=== PATIENT | female | born 1970 | race Hispanic/Latino ===

== ENCOUNTER 2016-10-12 10:17 | Emergency (ER) | payer OTHER ==
[~2016-10-12] VITALS: Ht 157.5 cm; Wt 81.8 kg
[~2016-10-12 10:17] MED LIST: AMLO5TAB2 PO; CEPH-511 PO; FLUT16SP2 NS; GLBR5T PO; IBUP800T28 PO; KETO5DRO60 AFF EYE; LOPE2TAB32 PO; LORA-610 PO; METF1000 PO; METO10TA3 PO; NAPR-837 PO; NAPR500T PO; OMEP20CA11 PO; OMEP20TA86 PO; ONDA8TAB10 PO; OXYC-284 PO; RANI300C PO; TRAM50TA2 PO; ZOF8 SL
[2016-10-12 10:33] VITALS: BP 145/101; PULSE 71; RESP 16; O2SAT 97
--- NOTE | 2016-10-12 11:39 | ED.REPORT ---
HPI-Back Pain 40 and Over Date of Service Oct 12, 2016 ED Provider: Jordy Geronimo PA-C Anny is a 46-year-old woman whose chief complaint is low back pain. Patient states she has chronic back pain has been worse than usual the last couple days , making it difficult for her to sleep. States ibuprofen is not helpful. Admits history of diabetes. Denies numbness, tingling, weakness or pain in lower extremity. Denies fever, HIV, organ transplant, immunosuppression, recent surgery, recent infection, history of back surgery, surgical implants and IV drug use. Denies bowel/bladder dysfunction and saddle anesthesia. Nursing Notes Stated Complaint: BACK PAIN Chief Complaint: Back Pain or Injury Nursing Notes Reviewed: Yes Allergies: Coded Allergies: hydrocodone (Verified Adverse Reaction, Severe, N&V, 10/12/16) lisinopril (Verified Adverse Reaction, Severe, COUGH, 10/12/16) losartan (Verified Adverse Reaction, Severe, HEADACHE, 10/12/16) ciprofloxacin (Verified Adverse Reaction, Intermediate, headaches, 10/12/16 ) Scheduled Amlodipine (Amlodipine) 5 Mg Tablet 5 MG PO DAILY Cephalexin (Keflex) 250 Mg Capsule 250 MG PO QID Glyburide (Glyburide) 5 Mg Tab 10 MG PO BID Ketotifen Fumarate (Ketotifen Fumarate) 5 Ml Drops 1 GTT AFF EYE BID Loratadine (Loratadine) 10 Mg Tab.rapdis 10 MG PO DAILY Metformin (Glucophage) 1,000 Mg Tablet 1,000 MG PO BIDWM Omeprazole (Omeprazole) 20 Mg Capsule.dr 20 MG PO BID Omeprazole (Omeprazole) 20 Mg Tablet.dr 20 MG PO BID Ranitidine (Ranitidine) 300 Mg Capsule 300 MG PO BID Scheduled PRN Cyclobenzaprine (Cyclobenzaprine) 5 Mg Tablet 5 MG PO TID PRN PRN Spasm Fluticasone Propionate (Flonase Nasal) 16 Gm [place].susp 2 SPRAYS NS BID PRN PRN For Congestion Ibuprofen (Ibuprofen) 800 Mg Tablet 800 MG PO QID PRN PRN For Pain Loperamide (Loperamide) 2 Mg Tablet 2 MG PO Q4H PRN PRN For Diarrhea or Loose Stool Take 1 tabs after each loose stool up to 6 tabs in 24 hours. Metoclopramide (Metoclopramide) 10 Mg Tablet 10 MG PO QID PRN PRN For Pain Naproxen (Naprosyn) 500 Mg Tablet 500 MG PO BID PRN PRN For Pain Naproxen Sodium (Midol) 220 Mg Tablet 220 MG PO Q6 PRN PRN For Pain Ondansetron (Zofran) 8 Mg Tab 8 MG SL Q8H PRN PRN PRN Ondansetron ODT (Ondansetron ODT) 8 Mg Tab.rapdis 8 MG PO QID PRN PRN For Nausea Oxycodone HCl/Acetaminophen 5-325 (Percocet 5-325) 1 Each Tablet 1-2 EACH PO Q4- 6H PRN PRN For Pain Tramadol (Tramadol) 50 Mg Tablet 50 MG PO Q8 PRN PRN For Pain General Time Seen by MD: 11:09 Chief Complaint Lumbar pain Sudden in Onset?: No Past Medical History Patient History: Patient reports no known family medical history. Past Medical History Type II diabetes ho Bladder infections Nephrolithiasis/Ureterolithiasis Reflux History of heart murmur History of sleep apnea Reports: Diabetes mellitus, GERD, Hyperlipidemia, Hypertension Past Surgical History Cholecystectomy Reports: , Cholecystectomy Reports: Tubal ligation Smoking History Never Smoker Social History Alcohol Use: Denies alcohol use Drug Use: Denies drug use Occupation lives with 3 kids 7, 8 and 13 Ambulatory Status Independent Review of Systems General: Denies fever, chills, malaise. HEENT: Denies congestion, headache, sore throat. Respiratory: Denies dyspnea, cough, shortness of breath, wheezing. Cardiovascular: Denies chest pain, palpitations. Gastrointestinal: Denies vomiting, diarrhea, abdominal pain. Genitourinary: Denies frequency, urgency, dysuria, hematuria. Otherwise as noted in HPI. Physical Exam General: Well appearing, well developed, well nourished, no acute distress. Head: Atraumatic, normocephalic. Eyes: No scleral icterus or injection. No discharge. Vision grossly intact. ENT: Voice clear, hearing grossly intact. Skin: Warm and dry. Neurological: Normal gait, toe walk, heel walk, Romberg. Hip flexion, knee extension, ankle dorsiflexion and plantarflexion strength 5/5 B/L. Patellar and Achilles reflexes present and equal B/L. Sensation to sharp touch intact at medial leg, dorsal foot and lateral foot B/L. negative seated straight leg raise , negative seated cross straight leg raise. Psychological: alert and oriented. Speech appropriate, linear and logical. Behavior appropriate. Initial Vital Signs Vital Signs (First) Date Time Temp Pulse Resp B/P Pulse Ox O2 Delivery O2 Flow Rate FiO2 10/12/16 10:33 36.3 71 16 145/101 97 Room Air Interpretation & Diagnostics Lab Results Interpretation Test 10/12/16 11:30 Hold Urine Received (Received) Urinalysis Interpretation Positive blood (patient states she is currently having menses), Positive glucose (1000) Re-Eval/Medical Decision Med Decision/Clinical Course 46-year-old patient with lower back pain. History, physical reassuring regarding cauda equina, epidural abscess. Neurological examination normal. Discharge patient with analgesia and instructions, Flexeril prescription, primary care follow-up instructions, return precautions Discharge & Departure Impression: Primary Impression: Low back pain Chronicity: acute Back pain laterality: left Sciatica presence: without sciatica Qualified Code: M54.5 - Low back pain Disposition: Home Discharge Condition All VS Reviewed: Yes Condition: Stable Patient Instructions: Acute Low Back Pain (ED) Additional Instructions: Evaluation in the emergency department for lower back pain. History and physical are reassuring for emergent neurological condition such as epidural abscess or cauda equina syndrome. History does not suggest that this is likely to be a spinal fracture. Your neurological examination is normal, indicating there is no damage to the nerves in your back. I see no indication to perform imaging tests at this time. Treatment is largely symptomatic. Rest is important, especially for the next couple of days, but avoid total bed rest. Reasonable activity as tolerated is the best. Apply ice to the affected area 4 times a day for 20 minutes over the next 24 hours. After that you will probably find warm compresses most helpful. The pain is best treated with 800 mg of ibuprofen (Advil, Motrin) every 6 hours , or 1000 mg of acetaminophen (Tylenol) every 6 hours. These drugs can be taken at the same time for more severe pain. I will write a prescription for cyclobenzaprine (Flexeril) which is a muscle relaxer which should help to get some better sleep. Please not drive or drink alcohol while taking cyclobenzaprine Most of all be patient: 70-90% of people with injuries presenting like yours will resolve within 7 weeks, even without treatment. Follow-up with your primary care provider in the next week or two to be sure your recovery is progressing as expected. Return the emergency department for new or worsening symptoms such as loss of bowel/bladder control, numbness between your legs, new weakness/numbness or high fever. The urinalysis shows no indication of a bladder or kidney infection, however there is significant amount of glucose in it. Please discuss strategies for control of your blood glucose level with your primary care provider. Referrals: Jerrod Lund MD (PCP) EDSupervising Provider for APC: John Trejo DO copies to: Jerrod Lund MD, Seth PA-C Oct 12, 2016 11:39
[2016-10-12] MEDS ORDERED: CYCL5TAB PO (11:48)
[2016-10-12 12:08] VITALS: BP 150/100; PULSE 71; RESP 18; O2SAT 100
== END 2016-10-12 12:15 | disposition home or self-care (01) ==
LOC: SED 10:17
DX: M54.5 Low back pain (principal); G89.29 Other chronic pain; E11.9 Type 2 diabetes mellitus without complications; K21.9 Gastro-esophageal reflux disease without esophagitis; E78.5 Hyperlipidemia, unspecified; I10 Essential (primary) hypertension; Z87.440 Personal history of urinary (tract) infections; Z79.84 Long term (current) use of oral hypoglycemic drugs; Z88.5 Allergy status to narcotic agent; Z88.8 Allergy status to other drugs, medicaments and biological substances; Z88.1 Allergy status to other antibiotic agents

== ENCOUNTER 2016-10-28 09:06 | Emergency (ER) | payer OTHER ==
[~2016-10-28] VITALS: Ht 157.5 cm; Wt 82.7 kg
[~2016-10-28 09:06] MED LIST changes: +CYCL5TAB PO
[2016-10-28 09:09] VITALS: BP 178/96; PULSE 82; RESP 16; O2SAT 97
--- NOTE | 2016-10-28 09:26 | ED.REPORT ---
HPI-Chest Pain 40 and Over Date of Service Oct 28, 2016 ED Provider: Shay Ordonez MD Patient is a 46-year-old female with a hx of HTN and DM who presents to the ED reporting right sided chest pain for the past nine hours. Pain began on the right side of her chest and radiates into the left chest, back and right arm. Patient c/o associated lightheadedness and describes the pain as a "light stabbing." She reports being seen multiple times for similar symptoms with one hospitalization. Patient has not been seen by a assembler final for this condition. These episodes have occurred twice a year for the past 2-3 years. She denies nausea, vomiting, sour taste in mouth, cough, and no hx of surgeries or blood clots. Nursing Notes Stated Complaint: CHEST PAIN,TROUBLE BREATHING Chief Complaint: Chest Pain Nursing Notes Reviewed: Yes Allergies: Coded Allergies: hydrocodone (Verified Adverse Reaction, Severe, N&V, 10/28/16) lisinopril (Verified Adverse Reaction, Severe, COUGH, 10/28/16) losartan (Verified Adverse Reaction, Severe, HEADACHE, 10/28/16) ciprofloxacin (Verified Adverse Reaction, Intermediate, headaches, 10/28/16 ) Scheduled Amlodipine (Amlodipine) 5 Mg Tablet 5 MG PO DAILY Cephalexin (Keflex) 250 Mg Capsule 250 MG PO QID Glyburide (Glyburide) 5 Mg Tab 10 MG PO BID Ketotifen Fumarate (Ketotifen Fumarate) 5 Ml Drops 1 GTT AFF EYE BID Loratadine (Loratadine) 10 Mg Tab.rapdis 10 MG PO DAILY Metformin (Glucophage) 1,000 Mg Tablet 1,000 MG PO BIDWM Omeprazole (Omeprazole) 20 Mg Capsule.dr 20 MG PO BID Omeprazole (Omeprazole) 20 Mg Tablet.dr 20 MG PO BID Ranitidine (Ranitidine) 300 Mg Capsule 300 MG PO BID Scheduled PRN Cyclobenzaprine (Cyclobenzaprine) 5 Mg Tablet 5 MG PO TID PRN PRN Spasm Fluticasone Propionate (Flonase Nasal) 16 Gm [place].susp 2 SPRAYS NS BID PRN PRN For Congestion Ibuprofen (Ibuprofen) 800 Mg Tablet 800 MG PO QID PRN PRN For Pain Ibuprofen (Ibuprofen) 800 Mg Tablet 800 MG PO TID PRN PRN For Pain Loperamide (Loperamide) 2 Mg Tablet 2 MG PO Q4H PRN PRN For Diarrhea or Loose Stool Take 1 tabs after each loose stool up to 6 tabs in 24 hours. Metoclopramide (Metoclopramide) 10 Mg Tablet 10 MG PO QID PRN PRN For Pain Naproxen (Naprosyn) 500 Mg Tablet 500 MG PO BID PRN PRN For Pain Naproxen Sodium (Midol) 220 Mg Tablet 220 MG PO Q6 PRN PRN For Pain Ondansetron (Zofran) 8 Mg Tab 8 MG SL Q8H PRN PRN PRN Ondansetron ODT (Ondansetron ODT) 8 Mg Tab.rapdis 8 MG PO QID PRN PRN For Nausea Oxycodone HCl/Acetaminophen 5-325 (Percocet 5-325) 1 Each Tablet 1-2 EACH PO Q4- 6H PRN PRN For Pain Tramadol (Tramadol) 50 Mg Tablet 50 MG PO Q8 PRN PRN For Pain General Time Seen by MD: 09:18 Chief Complaint Chest pain Hx Obtained From: Patient Arrived By: Walk-in Sudden in Onset?: Yes Onset Occurred: 9 - 12 hours ago Symptom Duration: Since onset Location: : Chest left: Chest right Radiation: : Arm right: Back Migration/Movement: Reports: Chest to back Severity: Current: Mild Recent Healthcare: Recent hospitalization Similar Sx Previous: Yes Past Medical History Patient History: Patient reports no known family medical history. Past Medical History Type II diabetes ho Bladder infections Nephrolithiasis/Ureterolithiasis Reflux History of heart murmur History of sleep apnea Reports: Diabetes mellitus, GERD, Hyperlipidemia, Hypertension Past Surgical History Cholecystectomy Reports: , Cholecystectomy Reports: Tubal ligation Smoking History Never Smoker Social History Alcohol Use: Denies alcohol use Drug Use: Denies drug use Occupation lives with 3 kids 7, 8 and 13 Ambulatory Status Independent Review of Systems Respiratory: Denies: Non-productive cough Cardiovascular: Reports: Chest pain (right side chest pain radiating into left chest, back and right arm) GI: Denies: Nausea, Vomiting Neurologic: Reports: Lightheaded Complete sys rev & neg: except as marked. Physical Exam Initial Vital Signs Vital Signs (First) Date Time Temp Pulse Resp B/P Pulse Ox O2 Delivery O2 Flow Rate FiO2 10/28/16 09:09 36.4 82 16 178/96 97 Room Air Initial VS: Reviewed Head / Eyes: Atraumatic, Normocephalic, PERRL ENT: Mucous membranes moist, Conjunctiva normal, No scleral icterus Neck: Supple, Non-tender, Full range of motion Back: No CVA tenderness Skin: Warm, Dry, No cyanosis Neurologic: Alert, Oriented, Nonfocal Psychiatric: Mood/affect normal, Behavior normal, Normal thought content General/Constitutional: Awake, Alert, No acute distress, Well appearing Respiratory / Chest: Atraumatic, Breath sounds NL, Breath sounds = bilat, No respiratory distress, No rales, No rhonchi, No wheezing Cardiovascular: Heart rate NL, Regular rhythm, Heart sounds NL, No gallop, No murmurs, No rubs Abdomen: Atraumatic, Soft, Non-tender, No guarding, No rebound, BS normoactive Interpretation & Diagnostics Lab Results Interpretation Result Diagram: 10/28/16 0930 10/28/16 0930 Test 10/28/16 09:30 10/28/16 09:42 White Blood Count 7.1th/mm3 (3.8-10.1) Red Blood Count 5.04mil/mm3 (3.90-5.20) Hemoglobin 14.5g/dL (12.0-15.6) Hematocrit 41.9% (35.0-46.0) Mean Corpuscular Volume 83.1fL (81-100) Mean Corpuscular Hemoglobin 28.8pg (27.0-35.0) Mean Corpuscular Hemoglobin Concent 34.6% (32.0-37.0) Red Cell Distribution Width 12.7% (12.3-15.4) Platelet Count 215bil/L (150-400) Neutrophils (%) (Auto) 61.7% (40-74) Lymphocytes (%) (Auto) 30.2% (14-46) Monocytes (%) (Auto) 5.6% (4-12) Eosinophils (%) (Auto) 2.1% (0-5) Basophils (%) (Auto) 0.3% (0-3) D-Dimer < 0.5mg/L (<0.50) Sodium Level 136mEq/L (134-144) Potassium Level 3.7mEq/L (3.5-5.2) Chloride Level 101mEq/L (97-108) Carbon Dioxide Level 20mmol/L (18-29) Blood Urea Nitrogen 12mg/dL (6-24) Creatinine 0.60mg/dL (0.57-1.00) Estimat Glomerular Filtration Rate 156mL/min (>59) Glucose Level 271mg/dL (60-99) Calcium Level 9.3mg/dL (8.5-10.1) Magnesium Level 1.9mg/dL (1.6-2.6) Total Bilirubin 0.3mg/dL (0.0-1.2) Aspartate Amino Transf (AST/SGOT) 29U/L (0-50) Alanine Aminotransferase (ALT/SGPT) 51U/L (0-32) Alkaline Phosphatase 89U/L (25-150) Troponin T < 0.010ug/L (0.0-0.011) Pro-B-Type Natriuretic Peptide 21.94pg/mL (0-130) Total Protein 7.7g/dL (6.4-8.4) Albumin 4.3g/dL (3.4-5.0) Hold Purple Top Tube Received (Received) Hold Blue Top Tube Received (Received) Hold [place] Top Tube Received (Received) Hold [place] Top Tube Received (Received) ECG Interpretation Time: 10:14 Interpreted by: ED physician Normal ECG Interpretation: Normal sinus rhythm (80), No acute ischemic changes X-Ray Chest Interpretation Chest Xray Interpretation: IMPRESSION: No acute cardiopulmonary disease process. Dictated by: Genesis Henderson MD, PhD on 10/28/2016 at 10:34 Approved by: Genesis Henderson MD, PhD on 10/28/2016 at 10:34 View: Portable Interpretation / Wet Read by: Interpret - Radiologist Re-Eval/Medical Decision Med Decision/Clinical Course 46-year-old female with right-sided chest pain 1 day. Reproducible on exam. EKG signs of ischemia. Troponins negative. Chest x-ray clear. D-dimer negative. Pain resolved with Toradol. Given reproducible, resolution with Toradol, negative workup as above, suspect musculoskeletal. Discharged home in good condition. NSAIDs as needed. Follow up with primary doctor. Return instructions given. Time of Eval: 10:49 Re-Evaluation/Progress Note: Pt rechecked. Informed pt of diagnosis of non-cardiac chest pain and plan for treatment. All labsare normal and no signs of blood clots or cardiac problems. Pt understands and agrees with plan. F/U and RTER warnings given. All questions addressed. Counseled Regarding: Diagnosis, Lab results, Need for follow-up, When/why to return to ED Discharge & Departure Primary Impression: Non-cardiac chest pain Disposition: Home Discharge Condition All VS Reviewed: Yes Condition: Stable Additional Instructions: Thank you for coming to the Emergency Department today. After reviewing your labs and x-rays, it has been determined you have non-cardiac chest pain. There are no irregularities in your results. Take ibuprofen for pain as needed. Please return to the Emergency Department for any new or worsening symptoms. We hope you feel better! Referrals: Jerrod Lund MD (PCP) Scribe Attestation Portion of this note were transcribed by Prakash Marcelo. I, Dr. Ordonez, personally performed the history, physical exam, and medical decision-making: I reviewed and confirmed the accuracy for the information in the transcribed note. Signed by: joselo Metz, 10/28/16 1100 copies to: Jerrod Lund MD, Ben M MD Oct 28, 2016 09:26 PRAKASH MARCELO Oct 28, 2016 09:46
[2016-10-28 09:51] LABS: BASOPHILS % (AUTO) 0.3 % (0-3); EOSINOPHILS % (AUTO) 2.1 % (0-5); MONOCYTES % (AUTO) 5.6 % (4-12); Mean Corpuscular Hemoglobin 28.8 pg (27.0-35.0); Mean Corpuscular Volume 83.1 fL (81-100); NEUTROPHILS % (AUTO) 61.7 % (40-74); Platelet Count 215 bil/L (150-400)
[2016-10-28 10:26] VITALS: BP 126/68; PULSE 81; RESP 18; O2SAT 97
[2016-10-28 10:31] LABS: Magnesium 1.9 mg/dL (1.6-2.6)
[2016-10-28 10:33] LABS: TROPONIN T < 0.010 ug/L (0.0-0.011)
--- NOTE | 2016-10-28 10:36 | DRSVH ---
PROCEDURE: X-RAY CHEST ONE VIEW, PORTABLE ([id number]) INDICATIONS: chest pain TECHNIQUE: One view of the chest was acquired. COMPARISON: [facility], CR, XR CHEST 2VW, 04/30/2016, 11:14. FINDINGS: Surgical changes and devices: None. Lungs and pleura: No pleural effusions or pneumothorax. Lungs are clear. Mediastinum: Mediastinal contours appear normal. Heart size is normal. Bones and chest wall: No suspicious bony lesions. Overlying soft tissues appear unremarkable. IMPRESSION: No acute cardiopulmonary disease process. Dictated by: Genesis Henderson MD, PhD on 10/28/2016 at 10:34 Approved by: Genesis Henderson MD, PhD on 10/28/2016 at 10:34
[2016-10-28] MEDS ORDERED: IBUP800T28 PO (10:51)
[2016-10-28 11:11] VITALS: BP 137/67; PULSE 80; RESP 20; O2SAT 97
== END 2016-10-28 11:12 | disposition home or self-care (01) ==
LOC: SED 09:06
DX: R07.89 Other chest pain (principal); E11.9 Type 2 diabetes mellitus without complications; I10 Essential (primary) hypertension; K21.9 Gastro-esophageal reflux disease without esophagitis; Z79.84 Long term (current) use of oral hypoglycemic drugs; Z88.1 Allergy status to other antibiotic agents; Z88.5 Allergy status to narcotic agent; Z88.8 Allergy status to other drugs, medicaments and biological substances

== ENCOUNTER 2016-11-11 16:47 | Emergency (ER) | payer OTHER ==
[~2016-11-11] VITALS: Ht 157.5 cm; Wt 83.2 kg
[2016-11-11 16:55] VITALS: BP 183/119; PULSE 102; RESP 18; O2SAT 100
[2016-11-11 17:18] LABS: APPEARANCE,URINE CLEAR (CLEAR,HAZY); COLOR,URINE STRAW (YELLOW); OCCULT BLOOD,URINE SMALL (NEGATIVE); UROBILINOGEN,URINE NORMAL (NORMAL)
--- NOTE | 2016-11-11 17:57 | ED.REPORT ---
HPI-Abd Pain F 40 and Over Date of Service Nov 11, 2016 ED Provider: Jordy Geronimo PA-C Jorge is a 46-year-old female with a complaint of lower abdominal pain. Patient states the pain began in her suprapubic region suddenly approximately 30 minutes ago. Nothing ameliorates or aggravates it. He describes the pain as crampy similar to her normal menstrual cramping but worse. She reports that she is on menses now. She had an IUD placed approximately 2 years ago for dysfunctional uterine bleeding. Also has a history of tubal ligation. Denies vomiting, bowel changes, sexual activity, fever, dysuria, hematuria, vaginal discharge. Admits history of uterine cyst, hypertension, diabetes, arthritis, GERD, back pain. Nursing Notes Stated Complaint: LOWER ABDOMINAL PAIN Chief Complaint: Female Abdominal Pain Nursing Notes Reviewed: Yes Allergies: Coded Allergies: hydrocodone (Verified Adverse Reaction, Severe, N&V, 11/11/16) lisinopril (Verified Adverse Reaction, Severe, COUGH, 11/11/16) losartan (Verified Adverse Reaction, Severe, HEADACHE, 11/11/16) ciprofloxacin (Verified Adverse Reaction, Intermediate, headaches, 11/11/16) Scheduled Amlodipine (Amlodipine) 5 Mg Tablet 5 MG PO DAILY Cephalexin (Keflex) 250 Mg Capsule 250 MG PO QID Doxycycline Hyclate (Doxycycline Hyclate) 100 Mg Capsule 100 MG PO BID Glyburide (Glyburide) 5 Mg Tab 10 MG PO BID Ketotifen Fumarate (Ketotifen Fumarate) 5 Ml Drops 1 GTT AFF EYE BID Loratadine (Loratadine) 10 Mg Tab.rapdis 10 MG PO DAILY Metformin (Glucophage) 1,000 Mg Tablet 1,000 MG PO BIDWM Omeprazole (Omeprazole) 20 Mg Capsule.dr 20 MG PO BID Omeprazole (Omeprazole) 20 Mg Tablet.dr 20 MG PO BID Ondansetron (Ondansetron) 8 Mg Tablet 8 MG PO TID Ranitidine (Ranitidine) 300 Mg Capsule 300 MG PO BID Scheduled PRN Cyclobenzaprine (Cyclobenzaprine) 5 Mg Tablet 5 MG PO TID PRN PRN Spasm Fluticasone Propionate (Flonase Nasal) 16 Gm [place].susp 2 SPRAYS NS BID PRN PRN For Congestion Ibuprofen (Ibuprofen) 800 Mg Tablet 800 MG PO QID PRN PRN For Pain Ibuprofen (Ibuprofen) 800 Mg Tablet 800 MG PO TID PRN PRN For Pain Loperamide (Loperamide) 2 Mg Tablet 2 MG PO Q4H PRN PRN For Diarrhea or Loose Stool Take 1 tabs after each loose stool up to 6 tabs in 24 hours. Metoclopramide (Metoclopramide) 10 Mg Tablet 10 MG PO QID PRN PRN For Pain Naproxen (Naprosyn) 500 Mg Tablet 500 MG PO BID PRN PRN For Pain Naproxen Sodium (Midol) 220 Mg Tablet 220 MG PO Q6 PRN PRN For Pain Ondansetron (Zofran) 8 Mg Tab 8 MG SL Q8H PRN PRN PRN Ondansetron ODT (Ondansetron ODT) 8 Mg Tab.rapdis 8 MG PO QID PRN PRN For Nausea Oxycodone HCl/Acetaminophen 5-325 (Percocet 5-325) 1 Each Tablet 1-2 EACH PO Q4- 6H PRN PRN For Pain Tramadol (Tramadol) 50 Mg Tablet 50 MG PO Q8 PRN PRN For Pain oxyCODONE (oxyCODONE) 5 Mg Tablet 5 MG PO Q4H PRN PRN For Pain General Time Seen by MD: 17:38 Chief Complaint Abdominal pain (suprapubic) Sudden in Onset?: Yes Past Medical History Patient History: Patient reports no known family medical history. Past Medical History Type II diabetes ho Bladder infections Nephrolithiasis/Ureterolithiasis Reflux History of heart murmur History of sleep apnea Reports: Diabetes mellitus, GERD, Hyperlipidemia, Hypertension Past Surgical History Cholecystectomy Reports: , Cholecystectomy Reports: Tubal ligation Smoking History Never Smoker Social History Alcohol Use: Denies alcohol use Drug Use: Denies drug use Occupation lives with 3 kids 7, 8 and 13 Ambulatory Status Independent Review of Systems Negative unless stated otherwise in history of present illness Physical Exam General: Well appearing, well developed, well nourished, no acute distress. Head: Atraumatic, normocephalic. Eyes: No scleral icterus or injection. No discharge. Vision grossly intact. ENT: Voice clear, hearing grossly intact. Respiratory: Regular rate and rhythm. Breath sounds present, clear to auscultation and equal bilaterally. Cardiovascular: Regular rate and rhythm, without murmur, gallop or rub. No pedal edema. Gastrointestinal: Mild lower abdominal tenderness without guarding or rebound. Bowel sounds normoactive. Skin: Warm and dry. Neurological: Grossly nonfocal. Psychological: Alert and oriented. Speech appropriate, linear and logical. Behavior appropriate. Vital Signs Vital Signs (First) Date Time Temp Pulse Resp B/P Pulse Ox O2 Delivery O2 Flow Rate FiO2 11/11/16 16:55 36.7 102 18 183/119 100 Room Air Initial VS: Reviewed, Vital signs abnormal (tachycardia) Interpretation & Diagnostics Lab Results Interpretation Result Diagram: 11/11/16 1823 11/11/16 1823 Test 11/11/16 17:00 11/11/16 18:22 11/11/16 18:23 Urine Color Straw (YELLOW) Urine Appearance Clear (CLEAR,HAZY) Urine pH 7.0 (5.0-8.0) Urine Specific [place] 1.025 (1.003-1.035) Urine Protein Negativemg/dL (NEG,TRACE) Urine Glucose (UA) 100mg/dL (NEGATIVE) Urine Ketones Negativemg/dL (NEGATIVE) Urine Occult Blood Small (NEGATIVE) Urine Nitrite Negative (NEGATIVE) Urine Bilirubin Negative (NEGATIVE) Urine Urobilinogen Normalmg/dL (NORMAL) Urine Leukocyte Esterase Negative (NEGATIVE) Urine RBC 0-2/hpf (0-2) Urine WBC 0-5/hpf (0-5) Urine Epithelial Cells None/hpf (NONE-MOD) Urine Crystals None seen (NONE SEEN) Urine Bacteria Few/hpf (NONE-FEW) Urine Hyaline Casts None/lpf (NONE) Urine Granular Casts None seen (NONE SEEN) Urine Waxy Casts None seen (NONE SEEN) Urine Red Blood Cell Casts None seen (NONE SEEN) Urine White Blood Cell Casts None seen (NONE SEEN) Urine Mucus None seen (None Seen) Urine Trichomonas None seen (NONE SEEN) Urine Yeast None (NONE SEEN) Urinalysis Comment None Urine Culture Reflexed Not indicated Hold Ramos Top Tube Received (Received) White Blood Count 13.9th/mm3 (3.8-10.1) Red Blood Count 5.01mil/mm3 (3.90-5.20) Hemoglobin 14.4g/dL (12.0-15.6) Hematocrit 41.5% (35.0-46.0) Mean Corpuscular Volume 82.8fL (81-100) Mean Corpuscular Hemoglobin 28.7pg (27.0-35.0) Mean Corpuscular Hemoglobin Concent 34.7% (32.0-37.0) Red Cell Distribution Width 12.3% (12.3-15.4) Platelet Count 259bil/L (150-400) Neutrophils (%) (Auto) 76.7% (40-74) Lymphocytes (%) (Auto) 16.2% (14-46) Monocytes (%) (Auto) 5.5% (4-12) Eosinophils (%) (Auto) 1.0% (0-5) Basophils (%) (Auto) 0.4% (0-3) Sodium Level 139mEq/L (134-144) Potassium Level 3.4mEq/L (3.5-5.2) Chloride Level 102mEq/L (97-108) Carbon Dioxide Level 22mmol/L (18-29) Blood Urea Nitrogen 10mg/dL (6-24) Creatinine 0.55mg/dL (0.57-1.00) Estimat Glomerular Filtration Rate 172mL/min (>59) Glucose Level 116mg/dL (60-99) Calcium Level 8.7mg/dL (8.5-10.1) Total Bilirubin 0.3mg/dL (0.0-1.2) Aspartate Amino Transf (AST/SGOT) 21U/L (0-50) Alanine Aminotransferase (ALT/SGPT) 29U/L (0-32) Alkaline Phosphatase 94U/L (25-150) Total Protein 7.6g/dL (6.4-8.4) Albumin 4.1g/dL (3.4-5.0) Re-Eval/Medical Decision Med Decision/Clinical Course 46-year-old female presents with a sudden onset of suprapubic pelvic pain that began about half an hour before presentation. She reports that the pain feels like her usual menstrual cramps but worse. She admits that she is on menses, denies vaginal discharge, denies sexual activity. He reports a history of tubal ligation and IUD for dysfunctional uterine bleeding. Physical exam reveals mild lower abdominal tenderness. Pelvic exam reveals the expected menstrual bleeding as well as some mild tenderness with cervical motion and adnexal examination. Adnexa are not appreciated. Urinalysis is normal. CBC reveals leukocytosis with left shift. Ultrasound reveals incision of the endometrial canal with hemorrhagic products, raising the question of cervical stenosis and/or endometrial synechia, a uterine fibroid small left paraovarian cyst. The right adnexa was not visualized. I discussed these findings with Dr. Hook. We decided to treat with ceftriaxone and doxycycline empirically for PID, provided medication and discharge her to follow-up with gynecology in the next few days. She appears quite stable and safe for discharge. I discussed this with the patient who agrees with the plan and is ready for discharge. Provided return precautions and answered all questions to the best of my ability. Re-Evaluation/Progress : Time of Eval: 18:49 Re-Evaluation/Progress Note: Patient's pain continues unchanged. Performed pelvic exam chaperoned by Wojciech Gibson. Extremely mild motion tenderness and adnexal tenderness. Ordered ultrasound Discharge & Departure Primary Impression: Pelvic pain Disposition: Home Discharge Condition All VS Reviewed: Yes Condition: Stable Patient Instructions: Acute Abdominal Pain (ED) Additional Instructions: Evaluation for abdominal pain the emergency department. Ultrasound reveals that the endometrial canal in her uterus appears to be distended with blood. This raises the question of a narrowing of your cervix. US also showed a fibroid measuring up to 10 mm as well as a small left paraovarian cyst. They were unable to visualize your right ovary. We feel confident that there is not an immediately dangerous cause for her abdominal pain such as torsed ovary or ectopic . There is a slight chance this is an early stage of pelvic inflammatory disease. While this is unlikely, this is a serious enough condition that we feel it is reasonable to treat you for it just be safe. You were given shot of Rocephin prior to discharge. I will prescribe you doxycycline to be taken twice a day for 2 weeks. I will also prescribe antinausea medications. The pain is best treated with 600 mg of ibuprofen (Advil, Motrin) every 6 hours , or 1000 mg of acetaminophen (Tylenol) every 6 hours. These drugs can be taken at the same time for more severe pain. If this is not enough, I will prescribe a small amount of oxycodone which you can add to this every 4-6 hours if you need to. You indicated a you see Dr. Curtis [facility] your [facility] health needs. Unfortunately he is not a computer system. Your are of course encouraged to follow-up with him, but I have provided with referral for gynecology follow-up with Dr Hernandez in case you need it. Please make arrangements to be seen in the next few days. Return to the emergency department for any new or worsening symptoms including increasing pain, increasing vaginal bleeding or discharge, fever, feeling ill. Referrals: Lowell Hernandez MD EDSupervising Provider for APC: Ivan Hook DO copies to: Lowell Hernandez MD; Jerrod Lund MD, Seth PA-C Nov 11, 2016 17:57
[2016-11-11 18:41] LABS: BASOPHILS % (AUTO) 0.4 % (0-3); MONOCYTES % (AUTO) 5.5 % (4-12); Mean Corpuscular Hemoglobin 28.7 pg (27.0-35.0); Mean Corpuscular Volume 82.8 fL (81-100); NEUTROPHILS % (AUTO) 76.7 % (40-74); Platelet Count 259 bil/L (150-400)
[2016-11-11] MEDS ORDERED: Ketorolac 30 mg/mL 2 mL Inj IM ONE (18:50)
--- NOTE | 2016-11-11 20:26 | DRSVH ---
PROCEDURE: US PELVIC SONOGRAM + TRANSVAGINAL SONOGRAM INDICATIONS: 46 year-old female with suprapubic and adnexal pain. TECHNIQUE: Real-time scanning was performed of the pelvic organs, with image documentation. Additional endovagi nal scanning was necessary due to incomplete visualization of the adnexal and endometrial structures by transabdominal scanning. COMPARISON: [facility] Ultrasound, US, PELVIS SONO TRANSVAGINAL ([facility]), 07/19/2014, 8:40 . [facility], CT, KUB - CT ([facility]), 11/29/2014, 23:50. FINDINGS: Transabdominal scanning: Limited scanning through the kidneys shows no hydronephrosis. No pathologi c free abdominal or pelvic fluid. Endovaginal scanning: Uterus: Uterus is normal in size at 9.9 x 5.5 x 6.3 cm. The endometrium measures up to 22 mm in com bined thickness, demonstrating homogeneous echotexture without internal vascular flow on color Dopple r interrogation. Left anterior intramural fibroid measures 10 x 8 x 8 mm. Several sizable lower uter ine segment nabothian cysts are again noted. Ovaries: Right ovary is unable to be identified. Left ovary is normal in size at 2.2 x 2.0 x 1.6 cm, with small incidental paraovarian cyst. IMPRESSION: 1. The endometrial canal appears focally distended with hemorrhagic products, raising the question of cervical stenosis and/or endometrial synechia. 2. Left anterior intramural uterine fibroid measures up to 10 mm. 3. Incidental small left paraovarian cyst. Right adnexa is unable to be identified. Dictated by: Luis Flannery M.D. on 11/11/2016 at 20:11 Approved by: Luis Flannery M.D. on 11/11/2016 at 20:21
[2016-11-11] MEDS ORDERED: cefTRIAXone Inj 250 MG, Lidocaine PF 1% Inj 0.9 ML in Syringe 1 EACH IM ONE (21:10)
[2016-11-11] MEDS ORDERED: DOXY100C2 PO (21:13)
[2016-11-11] MEDS ORDERED: OXYC5TAB72 PO (21:13)
[2016-11-11] MEDS ORDERED: ONDA-54 PO (21:13)
[2016-11-11 22:45] VITALS: BP 128/72; PULSE 72; RESP 16; O2SAT 99
== END 2016-11-11 22:47 | disposition home or self-care (01) ==
LOC: EDUNIT# 16:47 → EDBD 16:47 → SED 16:47
DX: R10.2 Pelvic and perineal pain (principal); E11.9 Type 2 diabetes mellitus without complications; K21.9 Gastro-esophageal reflux disease without esophagitis; E78.5 Hyperlipidemia, unspecified; I10 Essential (primary) hypertension; Z98.51 Tubal ligation status; Z97.5 Presence of (intrauterine) contraceptive device; Z87.42 Personal history of other diseases of the female genital tract; Z87.39 Personal history of other diseases of the musculoskeletal system and connective tissue; Z79.84 Long term (current) use of oral hypoglycemic drugs; Z88.1 Allergy status to other antibiotic agents; Z88.8 Allergy status to other drugs, medicaments and biological substances; Z88.5 Allergy status to narcotic agent
CPT/HCPCS: 36415; 76830; 76856; 80053; 81000; 81025; 85025; 96372; 96374; 99285; G0463; J0696; J1885; Q0169

== ENCOUNTER 2017-04-07 20:09 | Emergency (ER) | payer OTHER ==
[~2017-04-07] VITALS: Ht 157.5 cm; Wt 79.2 kg
[~2017-04-07 20:09] MED LIST changes: +DOXY100C2 PO; +ONDA-54 PO; +OXYC5TAB72 PO
[2017-04-07 20:19] VITALS: BP 161/105; RESP 18; O2SAT 98
--- NOTE | 2017-04-07 21:19 | ED.REPORT ---
HPI-URI / Cough / Cold Date of Service Apr 07, 2017 ED Provider: Nelson Brown MD Pt is a 47 y/o female w/ a hx of HTN, NIDDM, presenting to the ED c/o purulent left-sided nasal discharge onset 1 day ago. The patient states she hasn't actually seen any nasal discharge but can sense it and has post-nasal drip. She c/o associated dry cough, left maxillary pain, sore throat, chills, fever up to 102 F, and dysuria and urinary frequency for 2 days. She feels like she was infected 3 days ago when she was in here with her son. There are no sick contacts and she has no history of sinusitis. She does have seasonal allergies and has been experiencing this recently. She denies nausea, vomiting, constipation, diarrhea, headache. The patient takes Metformin for her diabetes but hasn't checked her glucose levels in a long time simply because she doesn't want to. She will be seeing her PCP Dr. Lund on 04/25 to discuss diabetes and hypertension. Nursing Notes Stated Complaint: FEVER,COUGH Chief Complaint: ENT & Mouth Nursing Notes Reviewed: Yes Allergies: Coded Allergies: hydrocodone (Verified Adverse Reaction, Severe, N&V, 04/07/17) lisinopril (Verified Adverse Reaction, Severe, COUGH, 04/07/17) losartan (Verified Adverse Reaction, Severe, HEADACHE, 04/07/17) ciprofloxacin (Verified Adverse Reaction, Intermediate, headaches, 04/07/17) Scheduled Amlodipine (Amlodipine) 5 Mg Tablet 5 MG PO DAILY Glyburide (Glyburide) 5 Mg Tab 10 MG PO BID Ketotifen Fumarate (Ketotifen Fumarate) 5 Ml Drops 1 GTT AFF EYE BID Linagliptin (Tradjenta) 5 Mg Tablet 5 MG PO DAILY Loratadine (Loratadine) 10 Mg Tab.rapdis 10 MG PO DAILY Metformin (Glucophage) 1,000 Mg Tablet 1,000 MG PO BIDWM Omeprazole (Omeprazole) 20 Mg Tablet.dr 20 MG PO BID Scheduled PRN Fluticasone Propionate (Flonase Nasal) 16 Gm [place].susp 2 SPRAYS NS BID PRN PRN For Congestion Metoclopramide (Metoclopramide) 10 Mg Tablet 10 MG PO QID PRN PRN For Pain Naproxen (Naprosyn) 500 Mg Tablet 500 MG PO BID PRN PRN For Pain Naproxen (Naproxen) 500 Mg Tab 500 MG PO BID PRN PRN For Pain Naproxen Sodium (Midol) 220 Mg Tablet 220 MG PO Q6 PRN PRN For Pain Tramadol (Tramadol) 50 Mg Tablet 50 MG PO Q8 PRN PRN For Pain General Time Seen by MD: 21:17 Chief Complaint Nasal congestion Hx Obtained From: Patient Arrived By: Walk-in Onset Occurred: Yesterday Symptom Duration: Since onset Location: : Sinus maxillary left Quality: Painful Severity: Current: Moderate Severity: Maximum: Moderate Recent Healthcare: No recent doctor visit, No recent hospitalization Similar Sx Previous: No Past Medical History Patient History: Patient reports no known family medical history. Past Medical History Hypertension Hyperlipidemia Type II diabetes ho Bladder infections Nephrolithiasis/Ureterolithiasis GERD History of heart murmur History of sleep apnea Past Surgical History Cholecystectomy Tubal ligation Smoking History Never Smoker Social History Alcohol Use: Denies alcohol use Drug Use: Denies drug use Occupation lives with 3 kids 7, 8 and 13 Ambulatory Status Independent Review of Systems Constitutional: Reports: Chills, Fever Ears / Nose / Throat: Reports: Nasal congestion, Sore throat Respiratory: Reports: Non-productive cough, Denies: Shortness of breath GI: Denies: Abdominal pain, Diarrhea, Nausea, Vomiting Complete sys rev & neg: except as marked. Cardiovascular: Denies: Chest pain Female: Reports: Dysuria, Urinary frequency Physical Exam Initial Vital Signs Vital Signs (First) Date Time Temp Pulse Resp B/P Pulse Ox O2 Delivery O2 Flow Rate FiO2 04/07/17 20:19 37.0 98 18 161/105 98 Room Air Initial VS: Reviewed, Vital signs abnormal Head / Eyes: Atraumatic, Normocephalic, PERRL Neck: Supple, Full range of motion Cardiovascular: Regular rate & rhythm, Heart sounds normal, Intact distal pulses Abdomen / GI: Soft, Non-tender, No guarding, No rebound, No distention Extremities: Vascular intact, Neuro intact, No swelling Skin: Warm, Dry, No cyanosis Neurologic: Alert, Oriented, Nonfocal Psychiatric: Mood/affect normal, Behavior normal, Normal thought content General/Constitutional: Awake, Alert, No acute distress, Cooperative, Not toxic appearing ENT: Atraumatic, Airway patent, Mucous membranes moist, Pharynx NL Slight retraction and dullness with ring of erytehma about left ear. Right TM nl. Mastoids nl. Left maxillary sinus tenderness Nasal turbinates erythematous No open sores Interpretation & Diagnostics Lab Results Interpretation Test 04/07/17 22:15 04/07/17 22:56 Hold Urine Received (Received) Urine Color Yellow (YELLOW) Urine Appearance Cloudy (CLEAR,HAZY) Urine pH 6.5 (5.0-8.0) Urine Specific [place] 1.026 (1.003-1.035) Urine Protein Tracemg/dL (NEG,TRACE) Urine Glucose (UA) >1000mg/dL (NEGATIVE) Urine Ketones Negativemg/dL (NEGATIVE) Urine Occult Blood Moderate (NEGATIVE) Urine Nitrite Negative (NEGATIVE) Urine Bilirubin Negative (NEGATIVE) Urine Urobilinogen Normalmg/dL (NORMAL) Urine Leukocyte Esterase Trace (NEGATIVE) Urine RBC 11-50/hpf (0-2) Urine WBC >50/hpf (0-5) Urine Epithelial Cells Occasional/hpf (NONE-MOD) Urine Crystals None seen (NONE SEEN) Urine Bacteria Many/hpf (NONE-FEW) Urine Hyaline Casts None/lpf (NONE) Urine Granular Casts None seen (NONE SEEN) Urine Waxy Casts None seen (NONE SEEN) Urine Red Blood Cell Casts None seen (NONE SEEN) Urine White Blood Cell Casts None seen (NONE SEEN) Urine Mucus None seen (None Seen) Urine Trichomonas None seen (NONE SEEN) Urine Yeast None (NONE SEEN) Urinalysis Comment None Urine Culture Reflexed Indicated Lab Results Interpretation: Packed WBC per high-power field in the urine, culture pending. Re-Eval/Medical Decision Med Decision/Clinical Course 47-year-old female with left maxillary sinusitis, left otitis media, and a UTI. She will be started on an antibiotic and discharged home to follow up with her regular doctor. Re-Evaluation/Progress : Time of Eval: 22:30 Re-Evaluation/Progress Note: Pt rechecked. Discussed medications and need for proper diabetes management. Informed pt of plan for treatment. Pt understands and agrees with plan for treatment. F/U instructions and RTER warnings given. All questions addressed. Counseled Regarding: Diagnosis, Need for follow-up, When/why to return to ED Discharge & Departure Impression: Primary Impression: Left maxillary sinusitis Additional Impressions: Left otitis media Otitis media type: suppurative Chronicity: acute Recurrence: not specified as recurrent Spontaneous tympanic membrane rupture: without spontaneous rupture Qualified Code: H66.002 - Acute suppurative otitis media without spontaneous rupture of ear drum, left ear Urinary tract infection Urinary tract infection type: site unspecified Hematuria presence: without hematuria Qualified Code: N39.0 - Urinary tract infection, site not specified Disposition: Home Discharge Condition All VS Reviewed: Yes Condition: Stable Patient Instructions: Otitis Media (ED), Sinusitis (ED), Urinary Tract Infection in Women (ED) Additional Instructions: You have a left ear infection, left maxillary sinus infection, and a urinary tract infection. Drink plenty of fluids and cranberry juice. Oxymetazoline ( Afrin) nasal spray, one spray each nostril 3 times a day for 3 days to help decongest the sinus and ear. Azithromycin 250 mg, 2 pills now and then 1 pill daily until gone, #6 dispensed. Attempt to clear your ears by plugging his nose and blowing. This will help the ear infection to heal. Naproxen 500 mg by mouth twice a day, #40 prescription written. Follow up with Dr. Lund as planned, sooner if you worsen. Your blood sugar is 276, much too high. You need to monitor your blood sugar and blood pressure more closely and discuss better control with Dr. Lund. Call me at [phone] between the hours of 9 PM and 6 AM for the next 2 nights if you have any questions or concerns. Referrals: Jerrod Lund MD (PCP) Azucenaibtoñito Attestation Portions of this note were transcribed by Eriberto Alvarez. I, Dr. Brown personally performed the history, physical exam and medical decision-making; I reviewed and confirmed the accuracy of the information in the transcribed note. Signed by Brittny Garrison, 04/07/17 - 0 copies to: Jerrod Lund MD, Howard L MD Apr 07, 2017 21:19 ERIBERTO ALVAREZ Apr 07, 2017 22:00
[2017-04-07] MEDS ORDERED: LINA5TAB PO (21:25)
[2017-04-07] MEDS ORDERED: _Azithromycin 250 mg Tablet PO SCH (22:30)
[2017-04-07] MEDS ORDERED: NPR500T PO (22:51)
[2017-04-07 23:59] LABS: APPEARANCE,URINE CLOUDY (CLEAR,HAZY); COLOR,URINE YELLOW (YELLOW); OCCULT BLOOD,URINE MODERATE (NEGATIVE); PH,URINE 6.5 (5.0-8.0); UROBILINOGEN,URINE NORMAL (NORMAL)
[2017-04-08 00:40] VITALS: BP 179/105; PULSE 85; RESP 16; O2SAT 100
== END 2017-04-08 00:40 | disposition home or self-care (01) ==
LOC: SED 20:09
DX: J01.00 Acute maxillary sinusitis, unspecified (principal); H66.002 Acute suppurative otitis media without spontaneous rupture of ear drum, left ear; N39.0 Urinary tract infection, site not specified; B96.20 Unspecified Escherichia coli [E. coli] as the cause of diseases classified elsewhere; I10 Essential (primary) hypertension; E11.9 Type 2 diabetes mellitus without complications; Z79.84 Long term (current) use of oral hypoglycemic drugs; E78.5 Hyperlipidemia, unspecified; K21.9 Gastro-esophageal reflux disease without esophagitis; Z88.5 Allergy status to narcotic agent; Z88.1 Allergy status to other antibiotic agents; Z88.8 Allergy status to other drugs, medicaments and biological substances

== ENCOUNTER 2017-06-23 10:43 | Emergency (ER) | payer OTHER ==
[~2017-06-23] VITALS: Ht 157.5 cm; Wt 82.7 kg
[~2017-06-23 10:43] MED LIST changes: -CEPH-511 PO; -CYCL5TAB PO; -DOXY100C2 PO; -IBUP800T28 PO; +LINA5TAB PO; -LOPE2TAB32 PO; +NPR500T PO; -OMEP20CA11 PO; -ONDA-54 PO; -ONDA8TAB10 PO; -OXYC-284 PO; -OXYC5TAB72 PO; -RANI300C PO; -ZOF8 SL
[2017-06-23 10:49] VITALS: BP 145/90; PULSE 74; RESP 14; O2SAT 100
--- NOTE | 2017-06-23 11:02 | ED.REPORT ---
HPI-Abd Pain F 40 and Over Date of Service Jun 23, 2017 ED Provider: Ermelinda Anderson History of Present Illness: diarrhea started yesterday, 6 episodes. Had a formed stool just after arriving at the ER. Nausea a little no vomiting. cramping pain. primary care is carmelinazon. HTN DM. 05/12 pain Nursing Notes Stated Complaint: DIARRHEA Chief Complaint: Female Abdominal Pain Nursing Notes Reviewed: Yes Allergies: Coded Allergies: hydrocodone (Verified Adverse Reaction, Severe, N&V, 04/07/17) lisinopril (Verified Adverse Reaction, Severe, COUGH, 04/07/17) losartan (Verified Adverse Reaction, Severe, HEADACHE, 04/07/17) ciprofloxacin (Verified Adverse Reaction, Intermediate, headaches, 04/07/17) Scheduled Amlodipine (Amlodipine) 5 Mg Tablet 5 MG PO DAILY Glyburide (Glyburide) 5 Mg Tab 10 MG PO BID Ketotifen Fumarate (Ketotifen Fumarate) 5 Ml Drops 1 GTT AFF EYE BID Linagliptin (Tradjenta) 5 Mg Tablet 5 MG PO DAILY Loratadine (Loratadine) 10 Mg Tab.rapdis 10 MG PO DAILY Metformin (Glucophage) 1,000 Mg Tablet 1,000 MG PO BIDWM Omeprazole (Omeprazole) 20 Mg Tablet.dr 20 MG PO BID Scheduled PRN Fluticasone Propionate (Flonase Nasal) 16 Gm [place].susp 2 SPRAYS NS BID PRN PRN For Congestion Metoclopramide (Metoclopramide) 10 Mg Tablet 10 MG PO QID PRN PRN For Pain Naproxen (Naprosyn) 500 Mg Tablet 500 MG PO BID PRN PRN For Pain Naproxen (Naproxen) 500 Mg Tab 500 MG PO BID PRN PRN For Pain Naproxen Sodium (Midol) 220 Mg Tablet 220 MG PO Q6 PRN PRN For Pain Tramadol (Tramadol) 50 Mg Tablet 50 MG PO Q8 PRN PRN For Pain General Time Seen by MD: 10:58 Chief Complaint Abdominal pain (cramping) Hx Obtained From: Patient Sudden in Onset?: No Symptom Duration: Since onset Past Medical History Patient History: Patient reports no known family medical history. Past Medical History Hypertension Hyperlipidemia Type II diabetes ho Bladder infections Nephrolithiasis/Ureterolithiasis GERD History of heart murmur History of sleep apnea Reports: Diabetes mellitus, Hypertension, Denies: Asthma Past Surgical History Cholecystectomy Tubal ligation Smoking History Never Smoker Social History Alcohol Use: Denies alcohol use Drug Use: Denies drug use Occupation lives with 3 kids 10, 9 and 16. 06/23/2017. no work or school 06/23/2017 Ambulatory Status Independent Review of Systems Basic Review of Systems Eyes: Vision NL, No discharge Allergy / Immune: No allergy Psychiatric: Normal thought content Physical Exam Vital Signs Vital Signs (First) Date Time Temp Pulse Resp B/P Pulse Ox O2 Delivery O2 Flow Rate FiO2 06/23/17 10:49 36.6 74 14 145/90 100 Room Air Initial VS: Reviewed, Vital signs normal Head / Eyes: Atraumatic, Normocephalic, PERRL ENT: Mucous membranes moist, Conjunctiva normal, No scleral icterus Neck: Supple, Non-tender, Full range of motion Lymphatic: No lymphadenopathy Extremities: Vascular intact, Neuro intact, No swelling, No tenderness Skin: Warm, Dry, No cyanosis Neurologic: Alert, Oriented, Nonfocal Psychiatric: Mood/affect normal, Behavior normal, Normal thought content General/Constitutional: Awake, Alert, No acute distress, Well appearing, Well developed, Well hydrated, Well nourished, Cooperative, Not toxic appearing Respiratory / Chest: Atraumatic, Breath sounds NL, Breath sounds = bilat, No respiratory distress Cardiovascular: Heart rate NL, Regular rhythm, Heart sounds NL, No gallop Abdomen: Atraumatic, Soft, Non-tender, McBurney's non-tender, No guarding, No rebound Bowel Sounds / Distention: Positive: Bowel sounds hypoactive Back: Atraumatic, Inspection NL, Full range of motion, Painless range of motion Interpretation & Diagnostics Lab Results Interpretation Result Diagram: 06/23/17 1136 06/23/17 1136 Test 06/23/17 11:36 06/23/17 13:09 White Blood Count 7.9th/mm3 (3.8-10.1) Red Blood Count 4.88mil/mm3 (3.90-5.20) Hemoglobin 14.1g/dL (12.0-15.6) Hematocrit 40.3% (35.0-46.0) Mean Corpuscular Volume 82.6fL (81-100) Mean Corpuscular Hemoglobin 28.9pg (27.0-35.0) Mean Corpuscular Hemoglobin Concent 35.0% (32.0-37.0) Red Cell Distribution Width 12.9% (12.3-15.4) Platelet Count 248bil/L (150-400) Neutrophils (%) (Auto) 62.6% (40-74) Lymphocytes (%) (Auto) 27.2% (14-46) Monocytes (%) (Auto) 7.2% (4-12) Eosinophils (%) (Auto) 2.3% (0-5) Basophils (%) (Auto) 0.4% (0-3) Sodium Level 137mEq/L (134-144) Potassium Level 3.7mEq/L (3.5-5.2) Chloride Level 102mEq/L (97-108) Carbon Dioxide Level 21mmol/L (18-29) Blood Urea Nitrogen 12mg/dL (6-24) Creatinine 0.65mg/dL (0.57-1.00) Estimat Glomerular Filtration Rate 141mL/min (>59) Glucose Level 150mg/dL (60-99) Calcium Level 8.9mg/dL (8.5-10.1) Total Bilirubin 0.4mg/dL (0.0-1.2) Aspartate Amino Transf (AST/SGOT) 30U/L (0-50) Alanine Aminotransferase (ALT/SGPT) 40U/L (0-32) Alkaline Phosphatase 72U/L (25-150) Troponin T 0.010ug/L (0.0-0.011) Total Protein 7.4g/dL (6.4-8.4) Albumin 4.0g/dL (3.4-5.0) Hold Ramos Top Tube Received (Received) Urine Color Straw (YELLOW) Urine Appearance Hazy (CLEAR,HAZY) Urine pH 6.0 (5.0-8.0) Urine Specific [place] 1.025 (1.003-1.035) Urine Protein Tracemg/dL (NEG,TRACE) Urine Glucose (UA) Negativemg/dL (NEGATIVE) Urine Ketones Negativemg/dL (NEGATIVE) Urine Occult Blood Negative (NEGATIVE) Urine Nitrite Negative (NEGATIVE) Urine Bilirubin Negative (NEGATIVE) Urine Urobilinogen Normalmg/dL (NORMAL) Urine Leukocyte Esterase Negative (NEGATIVE) Urine RBC 0-2/hpf (0-2) Urine WBC 0-5/hpf (0-5) Urine Epithelial Cells Occasional/hpf (NONE-MOD) Urine Crystals None seen (NONE SEEN) Urine Bacteria Moderate/hpf (NONE-FEW) Urine Hyaline Casts None/lpf (NONE) Urine Granular Casts None seen (NONE SEEN) Urine Waxy Casts None seen (NONE SEEN) Urine Red Blood Cell Casts None seen (NONE SEEN) Urine White Blood Cell Casts None seen (NONE SEEN) Urine Mucus Present (None Seen) Urine Trichomonas None seen (NONE SEEN) Urine Yeast None (NONE SEEN) Urinalysis Comment None Urine Culture Reflexed Indicated Re-Eval/Medical Decision Med Decision/Clinical Course 47 year old female presents to the ER with a 1 day hx of diarrhea. Patient states it seems to have slowed as she has had a formed stool right after arriving at the ER. Labs are unremarkable. EkG and troponin are normal. CT KUB identifys a cyst on the ovary with recommendation for follow up US. Information provided to patient. Stool PCR shows positive for enteropathogenic E coli epec. Discussed with Dr. Mckee, his recommendation is to do nothing. Especially since symptoms are resolving. Discussed with patient and she is fine with plan Discharge & Departure Primary Impression: Diarrhea Diarrhea type: unspecified type Qualified Code: R19.7 - Diarrhea, unspecified Additional Impression: Abdominal cramping Disposition: Home Patient Instructions: Acute Diarrhea (ED) Additional Instructions: Your labs are good. No sign of cardiac issues. The CT did not show any kidney stones. It did show a left cyst on the ovary. They are recommending an ultrasound on an out patient basis to further evaluate the cyst. [facility] for an appointment. The stool studies showed enteropathogenic E coli Epec. After speaking with Dr. Mckee, and the fact that the stool is now formed and you have not had any more episodes in the ER, the recommendation is to do nothing. For your cramping pain you can use percocet 1 at night as needed for severe unrelenting pain. Referrals: Jerrod Lund MD (PCP) REPLACED BY [facility] EDSupervising Provider for APC: Leonardo Trent MD copies to: Jerrod Lund MD, Sue ARNP Jun 23, 2017 11:02
[2017-06-23] MEDS ORDERED: Ondansetron 2 mg/mL 2 mL Inj IVPUSH ONE (11:20)
[2017-06-23] MEDS ORDERED: 0.9% Sodium Chloride 1,000 ML IV ONE (11:20)
[2017-06-23 11:45] LABS: BASOPHILS % (AUTO) 0.4 % (0-3); EOSINOPHILS % (AUTO) 2.3 % (0-5); MONOCYTES % (AUTO) 7.2 % (4-12); Mean Corpuscular Hemoglobin 28.9 pg (27.0-35.0); Mean Corpuscular Volume 82.6 fL (81-100); NEUTROPHILS % (AUTO) 62.6 % (40-74); Platelet Count 248 bil/L (150-400)
[2017-06-23 12:06] LABS: TROPONIN T 0.01 ug/L (0.0-0.011)
--- NOTE | 2017-06-23 12:35 | DRSVH ---
PROCEDURE: CT KUB ([id number]) INDICATIONS: abd pain TECHNIQUE: Noncontrast 5 mm thick sections acquired from the diaphragms to the symphysis. 5 mm thick coronal an d sagittal reformats were then performed. For radiation dose reduction, the following was used: aut omated exposure control, adjustment of mA and/or kV according to patient size. COMPARISON: [facility] Ultrasound, US, PELVIS SONO TRANSVAGINAL ([facility]), 07/19/2014, 8:40 . [facility], CT, ABD/PELVIS W/CON (PNL), 07/26/2014, 18:17. [facility], [place] , US PELVIC+TRANSVAG, 11/11/2016, 19:06. FINDINGS: Image quality: Excellent. Lung bases: Lung bases are clear. Heart size is normal. Urinary system: Both kidneys are normal in size. No kidney stones. No hydronephrosis or perinephri c fat stranding. Both ureters appear non-dilated throughout their expected courses. Bladder wall th ickness is normal; no calcified bladder stones. Other solid organs: Liver and spleen are normal in size. Gallbladder is surgically absent. Pancrea s is normal in contours. No adrenal nodules. Peritoneum and bowel: Unenhanced bowel loops demonstrate normal wall thickness and caliber. No free fluid or air. The appendix is normal. Nodes and vessels: No retroperitoneal or mesenteric adenopathy by size criteria. Aorta and inferior vena cava are normal in caliber. Abdominal wall: No ventral hernias. Pelvis: No free pelvic fluid. No inguinal hernias or adenopathy. Numerous cystic lesions noted jacqueline cent to the uterine cervix may represent large nabothian cysts. The uterus appears septated. 3.3 cm l eft adnexal region cyst.. Bones: No suspicious bony lesions. No vertebral body compression fractures. Spine degenerative disc disease and facet arthropathy. IMPRESSION: 1. No renal stone or hydronephrosis. 2. 3.3 x 4.3 cm left adnexal region complex cyst. Recommend pelvic ultrasound for definitive characte rization when clinically feasible. 3. Multiple cystic lesions adjacent to the uterine cervix may represent large nabothian cyst. Recomme nd pelvic ultrasound for definitive characterization when clinically feasible. Dictated by: Genesis Henderson MD, PhD on 06/23/2017 at 11:25 Approved by: Genesis Henderson MD, PhD on 06/23/2017 at 11:33
[2017-06-23 12:53] VITALS: BP 137/68; PULSE 67; RESP 20; O2SAT 98
[2017-06-23 13:31] LABS: APPEARANCE,URINE HAZY (CLEAR,HAZY); COLOR,URINE STRAW (YELLOW); OCCULT BLOOD,URINE NEGATIVE (NEGATIVE); UROBILINOGEN,URINE NORMAL (NORMAL)
[2017-06-23 14:56] VITALS: BP 138/77; PULSE 63; RESP 20; O2SAT 100
== END 2017-06-23 14:30 | disposition home or self-care (01) ==
LOC: SED 10:43
DX: R19.7 Diarrhea, unspecified (principal); R10.9 Unspecified abdominal pain; R11.0 Nausea; I10 Essential (primary) hypertension; E78.5 Hyperlipidemia, unspecified; E11.9 Type 2 diabetes mellitus without complications; K21.9 Gastro-esophageal reflux disease without esophagitis; Z90.49 Acquired absence of other specified parts of digestive tract; Z87.448 Personal history of other diseases of urinary system; Z79.84 Long term (current) use of oral hypoglycemic drugs; Z88.1 Allergy status to other antibiotic agents; Z88.8 Allergy status to other drugs, medicaments and biological substances; Z88.5 Allergy status to narcotic agent
CPT/HCPCS: 36415; 74176; 80053; 81000; 81025; 84484; 85025; 87086; 87088; 87507; 93005; 96361; 96374; 96375; 99285; J1885; J2405; J7030